=== PATIENT | female | born 1995 | race Two or more races ===

== ENCOUNTER 2016-10-10 17:31 | Emergency (ER) | payer OTHER ==
[~2016-10-10] VITALS: Ht 172.7 cm; Wt 54.5 kg
[2016-10-10 17:59] LABS: HEMATOCRIT 41.6 % (36.0-46.0); MCH 29.8 PG (29.0-34.0); MCHC 35.1 G/DL (30.0-36.0); MCV 84.9 FL (83-99); MEAN PLAT.VOLUME 9.9 uM^3 (9.5-12.4); PLATELET COUNT 244 K/uL (156-360); RBC DIS.WIDTH-CV 12.1 % (11.8-14.6); RBC DIS.WIDTH-SD 36.5 % (39-53); WHITE BLOOD COUNT 6.7 K/uL (4.1-10.2)
[2016-10-10 18:07] LABS: ADD MIUA? NO; BILIRUBIN NEGATIVE; BLOOD NEGATIVE; COLOR YELLOW ((YELLOW)); GLUCOSE (STRIP) NEGATIVE; KETONES NEGATIVE; LEUKOCYTES NEGATIVE; NITRITE NEGATIVE; PH, URINE 6.5 (5-8); PROTEIN (STRIP) NEGATIVE; SPECIFIC GRAVITY 1.014 (1.000-1.030); UCUL ADDED? NO; UROBILINOGEN 0.2 MG/DL (0.2-1.0)
[2016-10-10 18:14] LABS: CHLORIDE 107 mEq/L (99-109); POTASSIUM 4.2 mEq/L (3.7-5.4); SODIUM 139 mEq/L (136-147)
[2016-10-10 18:15] LABS: GLUCOSE 97 mg/dL (70-99)
[2016-10-10 18:17] LABS: ANION GAP 9 MEQ/L (2-14)
[2016-10-10 18:19] LABS: GFR ESTIMATE (CALCULATED) > 59 mL/min/
[2016-10-10 18:20] LABS: UREA NITROGEN (BUN) 9 mg/dL (9-23)
[2016-10-10] MEDS ORDERED: BIRTH CONTROL (19:27)
[2016-10-10 21:27] VITALS: BP 120/70
== END 2016-10-10 21:42 | disposition home or self-care (01) ==
LOC: RME 17:31 → EME 17:31 → RME 21:42
DX: R00.2 Palpitations (principal); R42 Dizziness and giddiness
CPT/HCPCS: 80048; 81003; 84439; 84443; 84481; 85027; 93005; 99281; 99285